=== PATIENT | female | born 1985 | race Caucasian/White ===

== ENCOUNTER 2017-05-22 16:00 | Emergency (ER) | payer OTHER ==
[~2017-05-22] VITALS: Ht 165.1 cm; Wt 62.5 kg
[~2017-05-22 16:00] MED LIST: ALEVE220 M2 PO; AMOXICILLIN500 MG PO; PERCOCET 5/31 TABLET PO; PRENATAL TABLE1 EAC3 PO; TOBRAMYCIN SULFA5 ML BOTH EYES
[2017-05-22 17:04] LABS: HEMATOCRIT 44.6 % (36.0-46.0); MCH 30.3 PG (29.0-34.0); MCHC 33.4 G/DL (30.0-36.0); MCV 90.8 FL (83-99); MEAN PLAT.VOLUME 10.5 uM^3 (9.5-12.4); PLATELET COUNT 272 K/uL (156-360); RED BLOOD COUNT 4.91 M/uL (3.80-5.20); WHITE BLOOD COUNT 9.6 K/uL (4.1-10.2)
[2017-05-22 17:20] LABS: CHLORIDE 108 mEq/L (99-109); POTASSIUM 3.5 mEq/L (3.7-5.4); SODIUM 140 mEq/L (136-147)
[2017-05-22 17:22] LABS: GLUCOSE 101 mg/dL (70-99)
[2017-05-22 17:23] LABS: ANION GAP 10 MEQ/L (2-14)
[2017-05-22 17:26] LABS: GFR ESTIMATE (CALCULATED) > 59 mL/min/
[2017-05-22 17:27] LABS: UREA NITROGEN (BUN) 11 mg/dL (9-23)
[2017-05-22] MEDS ORDERED: CHERATUSSIN AC473 ML PO (18:05)
[2017-05-22] MEDS ORDERED: VENTOLIN HFA18 GM IH (18:05)
[2017-05-22] MEDS ORDERED: PREDNISONE10 M1 PO (18:05)
[2017-05-22 18:30] VITALS: BP 118/72
== END 2017-05-22 18:30 | disposition home or self-care (01) ==
LOC: EME 16:00
DX: J20.9 Acute bronchitis, unspecified (principal); F17.200 Nicotine dependence, unspecified, uncomplicated
CPT/HCPCS: 71020; 80048; 85027; 94640; 99281; 99284; J2930